=== PATIENT | female | born 1950 | race Caucasian/White ===

== ENCOUNTER 2025-02-12 22:21 | Emergency (ER) | payer MEDICARE, OTHER ==
[2025-02-12] MEDS: Amoxicillin/Clavulanate K 875-125 MG Tab PO ONE (23:19)
== END 2025-02-12 23:21 | disposition home or self-care (01) ==
LOC: JD.ED 22:21
DX: K04.7 Periapical abscess without sinus (principal)
CPT/HCPCS: 99282; A9270; 99283